=== PATIENT | female | born 1985 | race Two or more races ===

== ENCOUNTER 2025-02-24 06:45 | Inpatient (IN) | payer MEDICAID, SELFPAY ==
--- NOTE | 2025-02-23 08:41 | EKG_ITS ---
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
[2025-02-23 08:47] VITALS: BMI 34.4
[2025-02-23 09:33] LABS: Basophils # (Auto) 0.1 Thou/mm3 (0.0-0.2); Basophils % (Auto) 1 % (0-2.5); Eosinophils # (Auto) 0.2 Thou/mm3 (0.0-0.5); Eosinophils % (Auto) 2 % (0-10); Hematocrit 38.5 % (36.0-46.0); Hemoglobin 12.8 g/dL (12.0-16.0); Immature Granulocytes Auto 0.04 Thou/mm3 (0.00-0.00); Lymphocytes # (Auto) 2.5 Thou/mm3 (1.0-4.8); Lymphocytes % (Auto) 30 % (10-50); Mean Corpuscular HGB Conc 33.2 g/dl (31.0-37.0); Mean Corpuscular Hemoglobin 27.9 pg (25.0-35.0); Mean Corpuscular Volume 84 fL (80-100); Monocytes # (Auto) 0.7 Thou/mm3 (0.0-0.8); Monocytes % (Auto) 8 % (0-12); Neutrophils # (Auto) 5.1 Thou/mm3 (1.8-7.7); Neutrophils % (Auto) 60 % (37-80); Nucleated Red Blood Cell # 0.00 Thou/mm3 (0.00-0.00); Nucleated Red Blood Cell % 0 /100 WBC (0); Platelet Count 441 Thou/mm3 (140-440); RDW Standard Deviation 40.5 fL (36.4-46.3); Red Blood Count 4.58 Miln/mm3 (4.00-5.20); White Blood Count 8.6 Thou/mm3 (3.6-11.0)
[2025-02-23 09:48] LABS: HCG,Qualitative Serum Negative
[2025-02-23 09:58] LABS: Alanine Aminotransferase 16 U/L (10-49); Albumin, Serum 4.2 gm/dL (3.5-5.0); Albumin/Globulin Ratio 1.4 (1.2-2.2); Alkaline Phosphatase 64 U/L (46-116); Anion Gap 4 (7-16); Aspartate Amino Transferase 20 U/L (0-34); BUN/Creatinine Ratio 10 Ratio (12-20); Bilirubin,Total 0.3 mg/dL (0.3-1.2); Blood Urea Nitrogen 8 mg/dL (9-23); Calcium 9.0 mg/dL (8.3-10.6); Calcium (Corrected) 9.0 mg/dL (8.5-10.1); Carbon Dioxide 26.7 mMol/L (20.0-31.0); Chloride 108 mMol/L (98-107); Creatinine (Component) 0.8 mg/dL (0.6-1.3); Estimated Creatinine Clearance 93.8 mL/min (>60); Globulin 3.0 gm/dL (2.3-3.5); Glucose 101 mg/dL (74-106); Osmolality,Calculated 275 (275-295); Potassium 4.3 mMol/L (3.4-5.1); Sodium 139 mMol/L (136-145); Total Protein 7.2 gm/dL (5.7-8.2); eGFR > 60 See Note
[2025-02-23 10:36] LABS: Hepatitis A Antibody IgM Non Reactive (Non React); Hepatitis B Core Antibody IgM Non Reactive (Non React); Hepatitis B Surface Antigen Non Reactive (Non React); Hepatitis C Antibody Non Reactive (Non React)
[2025-02-23 12:53] LABS: HIV (1&2) Antibody Rapid Non-Reactive
[2025-02-24] VITALS (19 sets, daily range): BP systolic 119–148; BP diastolic 67–91; PULSE 62–86; RESP 12–21; TEMP 36.1–37.1; O2SAT 93–100; BMI 34.4
--- NOTE | 2025-02-24 09:30 | ESHP_ITS ---
Documentation for date of: 02/24/25 SHIPPING AND RECEIVING CLERK - HPI History of Present Illness History of present illness: Ms. PERRY is a 39 year old female admitted for total abdominal hysterectomy bilateral salpingectomy for abnormal uterine bleeding secondary to leiomyomas patient was medically managed with Lupron however patient did not want to continue with Lupron as it made her bleeding worse. Patient was very adamant about having hysterectomy in spite of counseling her thoroughly about the possible risks including bladder and bowel injury Meds Home Medications and Allergies Home Medications ?Medication ?Instructions ?Recorded ?Confirmed ?Type levothyroxine 75 mcg capsule 75 mcg PO QDAY 02/23/25 0 02/24/25 History metoprolol tartrate 37.5 mg tablet 37.5 mg PO QDAY 09/1902/24/25 History Allergies Allergy/AdvReac Type Severity Reaction Status Date / Time No Known Allergies Allergy Verified 02/24/25 07:39 Exam - SHIPPING AND RECEIVING CLERK Vital Signs Temp Pulse Resp BP Pulse Ox 98.8 F 62 20 119/67 96 02/24/25 07:41 02/24/25 07:41 02/24/25 07:41 02/24/25 07:41 02/24/25 07:41 Constitutional Constitutional: no acute distress Routine HEENT Exam Head: Present normocephalic and atraumatic Eye: Present EOMI and PERRL ENT: Present mucous membranes moist Routine Neck Exam Neck: Present supple and trachea midline Routine Respiratory Exam Respiratory: Present chest non-tender, lungs clear, normal breath sounds and no resp distress Routine Cardiovascular Exam Cardiovascular: Present RRR Routine Abdominal Exam Abdominal: Present soft and normoactive bowel sounds Routine Extremities Exam Extremities: Present full ROM Routine Skin Exam Skin: Present intact and dry Routine Neurological Exam Neurological: Present alert, oriented X3 and CN II-XII intact Routine Psychiatric Exam Psychiatric: Present normal affect and normal thought process SHIPPING AND RECEIVING CLERK - Results Labs 02/23/25 09:16 02/23/25 09:16 Labs: Short CBC 02/23/25 Range/Units 09:16 WBC 8.6 (3.6-11.0) Thou/mm3 Hgb 12.8 (12.0-16.0) g/dL Hct 38.5 (36.0-46.0) % Plt Count 441 H (140-440) Thou/mm3 BMP 02/23/25 09:16 Sodium 139 Potassium 4.3 Chloride 108 H Carbon Dioxide 26.7 BUN 8 L Creatinine 0.8 Glucose 101 Calcium 9.0 Liver Function 02/23/25 Range/Units 09:16 Total Bilirubin 0.3 (0.3-1.2) mg/dL AST 20 (0-34) U/L ALT 16 (10-49) U/L Alkaline Phosphatase 64 (46-116) U/L Albumin 4.2 (3.5-5.0) gm/dL Impressions Impression: 39-year-old para 3 all previous is admitted for total abdominal hysterectomy for abnormal uterine bleeding secondary to leiomyomas On ultrasound uterus 10 cm , 2 arge fibroid 6 and 4 cm EMB already done normal , no hyperpladia , malignancy Pap in 2023 NILM HPV negative Patient was already started by another provider on Lupron but the patient declined to go further with any more hormonal methods and would rather have a hysterectomy risk of DOTTY including bladder injury was discussed , prev 3 csctionsPathology to be done after Pt understands 6 week recoveryreccomended to preserve ovaries below 50 yr and do oophorectomy after 48 yrwill be 48 hours in hospital before she can be discharged No sex for 6 week, no bath , can showe rwt lifting not more than a gallon of milk, no more than [address] Assessment and Plan Additional Assessment & Plan Additional Plan: Total abdominal hysterectomy bilateral salpingectomy Quality Measures Quality Measures VTE prophylaxis
--- NOTE | 2025-02-24 11:46 | SUR.PHASEI ---
1146 Patient arrived to recovery resting comfortably in bed, on oxygen 6L via oxy mask, sleeping- able to arouse then drifts back to sleep, breathing unlabored, vital signs stable, denies pain, dressing intact to lower abdomen; yao veras, aubrey, abd, pressure tape and to vaginal area, peripad, no bleeding noted, denies nausea, report received from Vivian ADLER and Eloise KELLY
--- NOTE | 2025-02-24 13:00 | SUR.PHASEI ---
Received report on pt. s/p surgery from Jen Arauz RN. Pt. is resting with eyes closed, responds to verbal commands, VSS, dressing to lower abdomen CDI.
--- NOTE | 2025-02-24 14:21 | SUR.PHASEI ---
1421 Dr. Sawyer called PACU to inquiry about her patients status, MD notified patient doing well, sleeping comfortably in bed, SYSTEMS DESIGNER has not been started as patient has been comfortable and sleeping, MD stated to start SYSTEMS DESIGNER when patient begins to have pain, MD also asked regarding patient urine output, at this time patient urine output appears to have approximately 350ml in henson bag, no new orders at this time from MD, asked to be notified when patient has a medsug room
--- NOTE | 2025-02-24 15:40 | PC.NURSE ---
Report received from CLASSIFICATION CONTROL CLERKROBIN Li.
--- NOTE | 2025-02-24 15:59 | SUR.PHASEI ---
1540 Report given to Hesham RN, patient meet discharge criteria from recovery, resting comfortably in bed, on oxygen 2L via nasal cannula, breathing unlabored, vital signs stable, denies pain and nausea, dressing intact; no bleeding noted, urinary catheter in place with leg secure; draining to gravity 1559 Patient transported via bed to room 374 without incident.
--- NOTE | 2025-02-24 16:05 | PC.NURSE ---
Patient to room via bed from PACU in stable condition.
[2025-02-24] MEDS: RINGERS LACTATED 1000 ML 1,000 ML 125 ML IV (16:27)
[2025-02-24] MEDS: ONDANSETRON INJ 2 MG/ML INJ 2 ML 4 MG IVP (16:27)
[2025-02-24] MEDS: Morphine Sulfate PF 1 MG/ML PCA VIAL 30 ML 30 MG IV (16:45)
[2025-02-24] MEDS: ceFAZolin/D5W 2 GM IV 2 GM/100 ML BAG IV ×2 (17:47→21:24)
[2025-02-24] MEDS: metroNIDAZOLE/NS 500 MG IVPB 500 MG/100 ML BAG 200 MG IV (17:51)
[2025-02-24 18:05] LABS: Basophils # (Auto) 0.1 Thou/mm3 (0.0-0.2); Basophils % (Auto) 0 % (0-2.5); Eosinophils # (Auto) 0.0 Thou/mm3 (0.0-0.5); Eosinophils % (Auto) 0 % (0-10); Hematocrit 33.7 % (36.0-46.0); Hemoglobin 11.4 g/dL (12.0-16.0); Immature Granulocytes Auto 0.06 Thou/mm3 (0.00-0.00); Lymphocytes # (Auto) 0.8 Thou/mm3 (1.0-4.8); Lymphocytes % (Auto) 4 % (10-50); Mean Corpuscular HGB Conc 33.8 g/dl (31.0-37.0); Mean Corpuscular Hemoglobin 28.1 pg (25.0-35.0); Mean Corpuscular Volume 83 fL (80-100); Monocytes # (Auto) 0.5 Thou/mm3 (0.0-0.8); Monocytes % (Auto) 3 % (0-12); Neutrophils # (Auto) 16.6 Thou/mm3 (1.8-7.7); Neutrophils % (Auto) 92 % (37-80); Nucleated Red Blood Cell # 0.00 Thou/mm3 (0.00-0.00); Nucleated Red Blood Cell % 0 /100 WBC (0); Platelet Count 387 Thou/mm3 (140-440); RDW Standard Deviation 39.7 fL (36.4-46.3); Red Blood Count 4.06 Miln/mm3 (4.00-5.20); White Blood Count 18.1 Thou/mm3 (3.6-11.0)
[2025-02-24] MEDS: METOPROLOL TARTRATE 25 MG TABLET 37.5 MG PO (21:22)
[2025-02-24] MEDS: DOCUSATE SOD 100 MG CAPSULE PO (21:23)
[2025-02-24] MEDS: SIMETHICONE 80 MG CHEW PO (21:23)
[2025-02-25] VITALS (12 sets, daily range): BP systolic 113–136; BP diastolic 64–85; PULSE 63–83; RESP 16–92; TEMP 36.4–37; O2SAT 92–98
[2025-02-25] MEDS: RINGERS LACTATED 1000 ML 1,000 ML 125 ML IV ×3 (00:36→17:17)
[2025-02-25] MEDS: ceFAZolin/D5W 2 GM IV 2 GM/100 ML BAG IV ×3 (05:18→22:17)
[2025-02-25] MEDS: SIMETHICONE 80 MG CHEW PO ×4 (05:19→22:16)
[2025-02-25 06:16] LABS: Basophils # (Auto) 0.1 Thou/mm3 (0.0-0.2); Basophils % (Auto) 0 % (0-2.5); Eosinophils # (Auto) 0.0 Thou/mm3 (0.0-0.5); Eosinophils % (Auto) 0 % (0-10); Hematocrit 30.1 % (36.0-46.0); Hemoglobin 10.2 g/dL (12.0-16.0); Immature Granulocytes Auto 0.07 Thou/mm3 (0.00-0.00); Lymphocytes # (Auto) 2.3 Thou/mm3 (1.0-4.8); Lymphocytes % (Auto) 15 % (10-50); Mean Corpuscular HGB Conc 33.9 g/dl (31.0-37.0); Mean Corpuscular Hemoglobin 28.3 pg (25.0-35.0); Mean Corpuscular Volume 84 fL (80-100); Monocytes # (Auto) 1.1 Thou/mm3 (0.0-0.8); Monocytes % (Auto) 7 % (0-12); Neutrophils # (Auto) 12.2 Thou/mm3 (1.8-7.7); Neutrophils % (Auto) 77 % (37-80); Nucleated Red Blood Cell # 0.00 Thou/mm3 (0.00-0.00); Nucleated Red Blood Cell % 0 /100 WBC (0); Platelet Count 362 Thou/mm3 (140-440); RDW Standard Deviation 39.8 fL (36.4-46.3); Red Blood Count 3.60 Miln/mm3 (4.00-5.20); White Blood Count 15.8 Thou/mm3 (3.6-11.0)
[2025-02-25] MEDS: ONDANSETRON INJ 2 MG/ML INJ 2 ML 4 MG IVP (07:58)
[2025-02-25] MEDS: KETOROLAC INJ 30 MG/ML VIAL IVP ×2 (07:58→17:36)
[2025-02-25] MEDS: DOCUSATE SOD 100 MG CAPSULE PO ×2 (07:59→22:16)
[2025-02-25] MEDS: Milk Of Magnesia Susp 30 ML UDC PO (09:50)
[2025-02-25] MEDS: METOPROLOL TARTRATE 25 MG TABLET 37.5 MG PO ×2 (09:50→22:16)
[2025-02-25] MEDS: metroNIDAZOLE/NS 500 MG IVPB 500 MG/100 ML BAG 200 MG IV ×2 (09:51→22:18)
[2025-02-25] MEDS: HYDROcodone/APAP 5/325 TABLET 1 TAB PO ×2 (13:09→22:30)
--- NOTE | 2025-02-25 13:14 | PC.NURSE ---
DRESSING REMOVED, SURGICAL INCISION INTACT, NO DRAINAGE, NO SMELL. PT TOLERATED WELL, SURGICAL INCISION LEFT OPEN TO AIR.
--- NOTE | 2025-02-25 15:03 | PC.SS ---
Patient is alert/oriented. Patient was able to verify demographics. Patient is independent with ADL's. She resides with family. Patient admitted for hysterectomy. Patient to d/c home with no needs. Patient verbalized her daughter, Sinai, is the alt medical decision maker, [facility]. Family to transport home. PCP: CHRISTIANNE and last appt. was last month. Pharmacy: [facility] pharmacy. alt medical decision maker: DaughterSinai,
--- NOTE | 2025-02-25 17:39 | ESOP_ITS ---
Operative Note - RESEARCH FOOD TECHNOLOGIST Procedure Date of procedure: 02/24/25 Procedure Performed: total abdominal hysterectomy Bilateral salpingectomy Indication: AUB- Leiomyoma Pre-Op diagnosis: AUB Leiomyoma Post-Op diagnosis: same Anesthesia type: General Narrative: The patient was seen prior to surgery. The potential benefits and risks of the procedure, the likelihood of success, and the problems related to recuperation have been discussed with patient who agrees to proceed. The possible results of nontreatment and significant alternatives to the proposed procedure have also been explained, along with the risks and benefits of the alternatives. Risks and benefits of chosen anesthetic/sedation and possible use of blood/blood products (if appropriate) were discussed.The patient was identified as Linette Merrill and the procedure verified. A time out was held reviewing the patient identifiers, procedure planned and allergies.After administration of general anesthesia, the patient was placed in the dorsal lithotomy position, and prepped and draped in the usual sterile fashion. On examination under anesthesia,the uterus was small and atrophied. A henson catheter was placed. This area was then draped off the remainder of the operative field. A Pfannenstiel incision was made using a scalpel 3 finger-breadths above the pubic symphysis.? The incision was taken down to the level of the fascia. The facial incision was made centrally and then extended with careful elevation of the abdominal wall and with farrell scissors. The fascial layer was from the underlying rectus in a blunt and sharp fashion. The peritoneum was entered carefully without any suspicion for injury. The abdomen was palpated and the bowel, omentum and bladder appeared unremarkable. The uterus was examined and had 2 noticiable leiomyomas size approximately 3cm , 1 on the fundus and 1 in the lower segment. Dissection was started on the right side. Right round ligament was clamped cut and leaves of the broad ligaments were opened. Gradual slow dissection from the lateral side to open up the the bladder fold. Slow and meticulous dissection done to release the bladder from the anterior uterine wall. Dissection started from the left round ligament and similar processes followed until we reached the lateral left side of the dense bladder adhesions. Slowly using Metzenbaums scissors and traction by a long [place] Citizen forceps the bladder was taken down. Bilateral utero-ovarian ligaments were then clamped and cut using Enseal hemostasis was maintained bilateral uterine arteries were then clamped using Enseal after making sure the bladder is secured well down using the retractor. Next, the cardinal ligaments were identified, clamped with the Mando clamp and ligated securely after making sure ureters are not in the vicinity. Colpotomy done and figure of 8 sutures were used to close the cuff. Irrigation was used and hemostasis was excellent.? Aresta hemostatic powder was applied to the posterior cul-de-sac and vaginal cuff. The retractor and sponges were removed. There was no concerns for any missing instruments or sponges.? The fascia was closed using 0-vicryl in a running fashion.? The subcutaneous layer was irrigated and bovie was used when necessary. The skin was closed with 4-0 monocryl sutures. Surgical staff Operation Date: 02/24/25 09:00 Case Staff PLATE GRAINER APPRENTICE: Vivian Aiken RN First Assistant: Monica Chen Diagnosis Problem List Completed Was Problem List Reviewed/Reconciled?: Yes
--- NOTE | 2025-02-25 17:43 | PD.GYNPROG ---
Documentation for date of: 02/25/25 FURNACE AND WASH EQUIPMENT OPERATOR Subjective Subjective Interval history: Ms. PERRY is a 39 year old female admitted s/p total abdominal hysterectomy bilateral salpingectomy for abnormal uterine bleeding secondary to leiomyomas has been doing well. Has tolerated diet , no nausea vomittingf , passing gas. Exam Vital Signs Temp Pulse Resp BP Pulse Ox O2 Del Method O2 Flow Rate 97.9 F 79 20 124/84 92 L Room Air 2 02/25/25 16:00 02/25/25 16:00 02/25/25 16:00 02/25/25 16:00 02/25/25 16:00 02/25/25 16:00 02/25/25 04:00 Constitutional Constitutional: no acute distress Routine HEENT Exam Head: Present normocephalic and atraumatic Eye: Present EOMI and PERRL ENT: Present mucous membranes moist Routine Neck Exam Neck: Present supple and trachea midline Routine Respiratory Exam Respiratory: Present chest non-tender, lungs clear, normal breath sounds and no resp distress Routine Cardiovascular Exam Cardiovascular: Present RRR Routine Abdominal Exam Abdominal: Present soft and normoactive bowel sounds Routine Extremities Exam Extremities: Present full ROM Routine Skin Exam Skin: Present intact and dry Routine Neurological Exam Neurological: Present alert, oriented X3 and CN II-XII intact Routine Psychiatric Exam Psychiatric: Present normal affect and normal thought process Urinary Catheter Management Cath placed during this visit: no FURNACE AND WASH EQUIPMENT OPERATOR - PN: Obj Data Labs 02/25/25 05:15 02/23/25 09:16 Labs: Laboratory Results - last 24 hr 02/24/25 02/25/25 17:38 05:15 WBC 18.1 H D 15.8 H RBC 4.06 3.60 L Hgb 11.4 L 10.2 L Hct 33.7 L 30.1 L MCV 83 84 MCH 28.1 28.3 MCHC 33.8 33.9 RDW Std Deviation 39.7 39.8 Plt Count 387 D 362 Neut % (Auto) 92 H 77 Lymph % (Auto) 4 L 15 [place] % (Auto) 3 7 Eos % (Auto) 0 0 Baso % (Auto) 0 0 Neut # (Auto) 16.6 H 12.2 H Lymph # (Auto) 0.8 L 2.3 [place] # (Auto) 0.5 1.1 H Eos # (Auto) 0.0 0.0 Baso # (Auto) 0.1 0.1 Immature Gran # (Auto) 0.06 H 0.07 H Absolute Nucleated RBC 0.00 0.00 Immature Gran % 0 0 Nucleated RBC % 0 0 FURNACE AND WASH EQUIPMENT OPERATOR - A/P Postoperative Procedures: Procedures Operation Date: 02/24/25 07:30 <No data on this case meets the specified criteria> Operation Date: 02/24/25 09:00 Actual Procedure Side Surgeon p Abdominal Hysterectomy Victorina Sawyer MD Time Spent With Patient Time: Total time spent is greater than 50% in coordination of care (as documented) at patient's floor/unit and/or counseling patient: Time with patient: 25 - 35 minutes
[2025-02-26 04:00] VITALS: BP 126/82; PULSE 67; RESP 17; TEMP 36.3; O2SAT 95
[2025-02-26] MEDS: ceFAZolin/D5W 2 GM IV 2 GM/100 ML BAG IV (06:23)
[2025-02-26] MEDS: SIMETHICONE 80 MG CHEW PO ×2 (06:23→11:36)
[2025-02-26 08:00] VITALS: BP 118/78; PULSE 72; RESP 18; TEMP 36.4; O2SAT 94
[2025-02-26] MEDS: ONDANSETRON INJ 2 MG/ML INJ 2 ML 4 MG IVP (08:31)
[2025-02-26] MEDS: HYDROcodone/APAP 5/325 TABLET 1 TAB PO ×2 (08:33→15:07)
[2025-02-26 08:34] VITALS: BP 118/78; PULSE 72
[2025-02-26] MEDS: METOPROLOL TARTRATE 25 MG TABLET 37.5 MG PO (08:34)
[2025-02-26] MEDS: DOCUSATE SOD 100 MG CAPSULE PO (08:34)
[2025-02-26] MEDS: metroNIDAZOLE/NS 500 MG IVPB 500 MG/100 ML BAG 200 MG IV (08:35)
[2025-02-26] MEDS: Milk Of Magnesia Susp 30 ML UDC PO (08:35)
--- NOTE | 2025-02-26 10:37 | PC.NURSE ---
DR. GANT AT BEDSIDE, POC DISCUSSED, PATIENT C/O URINE FREQUENCY. DOCTOR WILL PUT IN ORDERS.
[2025-02-26] MEDS: IBUPROFEN TAB 400 MG TABLET 800 MG PO (10:44)
[2025-02-26] MEDS: PHENAZOPYRIDINE HCL 100 MG TABLET PO (10:45)
--- NOTE | 2025-02-26 10:49 | PD.GYNDS ---
Planned Discharge Date 02/26/25 DS: Providers Provider Date of admission: 02/24/25 06:45 Primary care physician: Mark Shaw MD Admitting Provider: Victorina Sawyer MD Attending Provider on Admission: Victorina Sawyer MD Attending Provider on DC: Victorina Sawyer MD Discharging Provider: Victorina Sawyer MD Hospital Course Hospital Course Hospital course: Ms. PERRY is a 39 year old female admitted for total abdominal hysterectomy bilateral salpingectomy for abnormal uterine bleeding secondary to leiomyomas patient was medically managed with Lupron however patient did not want to continue with Lupron as it made her bleeding worse. Patient was very adamant about having hysterectomy in spite of counseling her thoroughly about the possible risks including bladder and bowel injury Time Spent with Patient Time attestation: Total time spent providing and/or coordinating discharge services: Quality: VTE Deep Vein Thrombosis/Pulmonary Embolism Present on Admission: No Exam - CANE PILER Vital Signs Temp Pulse Resp BP Pulse Ox O2 Del Method O2 Flow Rate 97.5 F 72 18 118/78 94 L Room Air 2 02/26/25 08:00 02/26/25 08:34 02/26/25 08:00 02/26/25 08:34 02/26/25 08:00 02/26/25 08:00 02/25/25 04:00 Discharge Plan Plan Patient Disposition: HOME (Self Care) Prescriptions/Referrals Prescriptions/Med Rec: New acetaminophen-codeine 300-15 mg tablet 1 tab PO Q12H PRN (Reason: pain) Qty: 14 0RF acetaminophen 500 mg capsule 500 mg PO Q6H PRN (Reason: fever or pain) Qty: 30 0RF ibuprofen 800 mg tablet 800 mg PO Q6H Qty: 30 0RF docusate sodium [Colace] 100 mg capsule 100 mg PO BID Qty: 30 0RF metronidazole 500 mg tablet 500 mg PO BID Qty: 14 0RF doxycycline monohydrate 100 mg tablet 100 mg PO BID Qty: 30 0RF phenazopyridine 200 mg tablet 200 mg PO TID PRN (Reason: pain) Qty: 20 0RF nitrofurantoin monohyd/m-cryst [Macrobid] 100 mg capsule 100 mg PO BID Qty: 14 0RF Rx Instructions: must administer with a meal/food No Action levothyroxine 75 mcg capsule 75 mcg PO QDAY metoprolol tartrate 37.5 mg tablet 37.5 mg PO BID Referrals: Mark Shaw MD [Primary Care Provider] - Patient/Caregiver Discharge Instructions Print Language: English Stand Alone Forms: Yamel Award Info., Patient Portal Info Letter Discharge Order Discharge Orders: Discharge (Routine); Ordered 02/26/25 Ordered By: Victorina Sawyer
--- NOTE | 2025-02-26 10:56 | ESPR_ITS ---
Documentation for date of: 02/26/25 CARE TRANSITIONS MANAGER Subjective Subjective Interval history: Ms. PERRY is a 39 year old female has been here for 2 days, Today feels like she has to constantly urinate. No fever , isabela flkank pain. No hematuria or burning. cathere was removed yesterday, feels suprspubic pressure Exam Vital Signs Temp Pulse Resp BP Pulse Ox O2 Del Method O2 Flow Rate 97.5 F 72 18 118/78 94 L Room Air 2 02/26/25 08:00 02/26/25 08:34 02/26/25 08:00 02/26/25 08:34 02/26/25 08:00 02/26/25 08:00 02/25/25 04:00 Constitutional Constitutional: no acute distress Routine HEENT Exam Head: Present normocephalic and atraumatic Eye: Present EOMI and PERRL ENT: Present mucous membranes moist Routine Neck Exam Neck: Present supple and trachea midline Routine Respiratory Exam Respiratory: Present chest non-tender, lungs clear, normal breath sounds and no resp distress Routine Cardiovascular Exam Cardiovascular: Present RRR Routine Abdominal Exam Abdominal: Present soft and normoactive bowel sounds Routine Extremities Exam Extremities: Present full ROM Routine Skin Exam Skin: Present intact and dry Routine Neurological Exam Neurological: Present alert, oriented X3 and CN II-XII intact Routine Psychiatric Exam Psychiatric: Present normal affect and normal thought process Urinary Catheter Management Cath placed during this visit: no CARE TRANSITIONS MANAGER - PN: Obj Data Labs 02/25/25 05:15 02/23/25 09:16 Labs: Laboratory Results - last 24 hr 02/24/25 02/25/25 17:38 05:15 WBC 18.1 H D 15.8 H RBC 4.06 3.60 L Hgb 11.4 L 10.2 L Hct 33.7 L 30.1 L MCV 83 84 MCH 28.1 28.3 MCHC 33.8 33.9 RDW Std Deviation 39.7 39.8 Plt Count 387 D 362 Neut % (Auto) 92 H 77 Lymph % (Auto) 4 L 15 [place] % (Auto) 3 7 Eos % (Auto) 0 0 Baso % (Auto) 0 0 Neut # (Auto) 16.6 H 12.2 H Lymph # (Auto) 0.8 L 2.3 [place] # (Auto) 0.5 1.1 H Eos # (Auto) 0.0 0.0 Baso # (Auto) 0.1 0.1 Immature Gran # (Auto) 0.06 H 0.07 H Absolute Nucleated RBC 0.00 0.00 Immature Gran % 0 0 Nucleated RBC % 0 0 Impressions Impression: 39 y/o UTI on 2nd POD Antibiotics and phenazopyridine added fpoe symptomatic relief VSS Meeting all PO milestone CARE TRANSITIONS MANAGER - A/P Postoperative Procedures: Procedures Operation Date: 02/24/25 07:30 <No data on this case meets the specified criteria> Operation Date: 02/24/25 09:00 Actual Procedure Side Surgeon p Abdominal Hysterectomy Victorina Sawyer MD Time Spent With Patient Time: Total time spent is greater than 50% in coordination of care (as documented) at patient's floor/unit and/or counseling patient: Time with patient: 25 - 35 minutes
[2025-02-26] MEDS: cefTRIAXone/D5w 2gm 2 GM/50 ML BAG IV (11:35)
[2025-02-26 12:00] VITALS: BP 111/70; PULSE 76; RESP 18; TEMP 36.3; O2SAT 95
[2025-02-26 12:30] LABS: Collection Type, Urine Clean Catch
[2025-02-26 12:49] LABS: Bilirubin,Urine 1+ (Negative); Blood,Urine 2+ (Negative); Clarity,Urine Clear (Clear/Hazy); Color,Urine Drk-Yellow (Lt Yel-Yel); Glucose, Urine Negative (Negative); Ketones,Urine Negative (Negative); Leukocyte Esterase,Urine Negative (Negative); Nitrite,Urine Positive (Negative); PH,Urine 7.5 (5.0-7.0); Protein,Urine Trace (Neg - Trace); RBC,Urine 56 /hpf (0-3); Specific Gravity,Urine 1.025 (1.001-1.035); Squamous Epithelial Cell,Urine 8 /hpf (0-5); Urobilinogen,Urine 4.0 mg/dL (0.0-1.0); WBC,Urine 2 /hpf (0-5)
--- NOTE | 2025-03-10 09:32 | ESDS_ITS ---
Planned Discharge Date 02/26/25 DS: Providers Provider Date of admission: 02/24/25 06:45 Primary care physician: Mark Shaw MD Admitting Provider: Victorina Sawyer MD Attending Provider on Admission: Victorina Sawyer MD Attending Provider on DC: Victorina Sawyer MD Discharging Provider: Victorina Sawyer MD DS: Diagnosis Problem List Completed Was Problem List Reviewed/Reconciled?: Yes Hospital Course Hospital Course Hospital course: Ms. PERRY is a 39 year old female has been here for 2 days, Today feels like she has to constantly urinate. No fever , isabela flkank pain. No hematuria or burning. cathere was removed yesterday, feels suprspubic pressure Time Spent with Patient Time attestation: Total time spent providing and/or coordinating discharge services: Time spent: Greater than 30 minutes Quality: VTE Deep Vein Thrombosis/Pulmonary Embolism Present on Admission: No Exam - MANAGER LABOR RELATIONS Vital Signs Temp Pulse Resp BP Pulse Ox O2 Del Method O2 Flow Rate 97.3 F 76 18 111/70 95 Room Air 2 02/26/25 12:00 02/26/25 12:00 02/26/25 12:00 02/26/25 12:00 02/26/25 12:00 02/26/25 12:00 02/25/25 04:00 Constitutional Constitutional: no acute distress Routine HEENT Exam Head: Present normocephalic and atraumatic Eye: Present EOMI and PERRL ENT: Present mucous membranes moist Routine Neck Exam Neck: Present supple and trachea midline Routine Respiratory Exam Respiratory: Present chest non-tender, lungs clear, normal breath sounds and no resp distress Routine Cardiovascular Exam Cardiovascular: Present RRR Routine Abdominal Exam Abdominal: Present soft and normoactive bowel sounds Routine Extremities Exam Extremities: Present full ROM Routine Skin Exam Skin: Present intact and dry Routine Neurological Exam Neurological: Present alert, oriented X3 and CN II-XII intact Routine Psychiatric Exam Psychiatric: Present normal affect and normal thought process Discharge Plan Plan Patient Disposition: HOME (Self Care) Prescriptions/Referrals Prescriptions/Med Rec: New acetaminophen-codeine 300-15 mg tablet 1 tab PO Q12H PRN (Reason: pain) Qty: 14 0RF acetaminophen 500 mg capsule 500 mg PO Q6H PRN (Reason: fever or pain) Qty: 30 0RF ibuprofen 800 mg tablet 800 mg PO Q6H Qty: 30 0RF docusate sodium [Colace] 100 mg capsule 100 mg PO BID Qty: 30 0RF metronidazole 500 mg tablet 500 mg PO BID Qty: 14 0RF doxycycline monohydrate 100 mg tablet 100 mg PO BID Qty: 30 0RF phenazopyridine 200 mg tablet 200 mg PO TID PRN (Reason: pain) Qty: 20 0RF nitrofurantoin monohyd/m-cryst [Macrobid] 100 mg capsule 100 mg PO BID Qty: 14 0RF Rx Instructions: must administer with a meal/food acetaminophen 500 mg capsule 500 mg PO Q6H PRN (Reason: fever or pain) Qty: 20 0RF ibuprofen 800 mg tablet 800 mg PO Q8H PRN (Reason: pain) Qty: 20 0RF acetaminophen-codeine 300-15 mg tablet 1 tab PO Q12H PRN (Reason: pain) Qty: 14 0RF docusate sodium [Colace] 100 mg capsule 100 mg PO BID Qty: 30 0RF metronidazole 500 mg tablet 500 mg PO BID Qty: 30 0RF doxycycline monohydrate 100 mg capsule 100 mg PO BID Qty: 30 0RF nitrofurantoin monohyd/m-cryst [Macrobid] 100 mg capsule 100 mg PO BID Qty: 14 0RF Rx Instructions: must administer with a meal/food No Action levothyroxine 75 mcg capsule 75 mcg PO QDAY metoprolol tartrate 37.5 mg tablet 37.5 mg PO BID Referrals: Mark Shaw MD [Primary Care Provider] - Patient/Caregiver Discharge Instructions Print Language: Turkmen Stand Alone Forms: Yamel Award Info., Patient Portal Info Letter Discharge Order Discharge Orders: Discharge (Routine); Ordered 02/26/25 Ordered By: Victorina Sawyer
== END 2025-02-26 15:46 | disposition home or self-care (01) | DRG 519 ==
LOC: S2W1 09:45 → S3SX 16:16
PROVIDERS: Admitting Provider Student in an Organized Health Care Education/Training Program; PCP Family Medicine; Visit Provider Student in an Organized Health Care Education/Training Program
PROC: 0UT90ZZ Resection of Uterus, Open Approach (ICD-10-PCS; principal; 2025-02-24 09:00)
DX: D25.9 Leiomyoma of uterus, unspecified (principal); N39.0 Urinary tract infection, site not specified; Z98.891 History of uterine scar from previous surgery
CPT/HCPCS: 36415; 80053; 80074; 81001; 84703; 85025; 86703; 86850; 86900; 86901; 93005; A4217; A4649; J0131; J0689; J0690; J0696; J1171; J1885; J2250; J2270; J2405; J2704; J3010; J3490; J7120; A9270; J1836